=== PATIENT | female | born 1980 ===

== ENCOUNTER 2025-06-27 14:41 | Emergency (ER) | payer OTHER ==
[~2025-06-27] VITALS: Ht 157.5 cm; Wt 54.4 kg
[2025-06-27 15:03] VITALS: BP 149/94
[2025-06-27] MEDS ORDERED: Silver Sulfadiazine 1% Cream 25 APPLIC/25 GM Tube TOP ONE (16:00)
[2025-06-27] MEDS ORDERED: HYDROCODONE-AC1 EA10 PO (16:15)
[2025-06-27] MEDS ORDERED: SILVADENE20 G1 TOP (16:15)
== END 2025-06-27 16:42 | disposition home or self-care (01) ==
LOC: ER 14:41
DX: T24.202A Burn of second degree of unspecified site of left lower limb, except ankle and foot, initial encounter (principal); T24.201A Burn of second degree of unspecified site of right lower limb, except ankle and foot, initial encounter; T23.231A Burn of second degree of multiple right fingers (nail), not including thumb, initial encounter; T22.211A Burn of second degree of right forearm, initial encounter; T22.212A Burn of second degree of left forearm, initial encounter; T20.20XA Burn of second degree of head, face, and neck, unspecified site, initial encounter; X08.8XXA Exposure to other specified smoke, fire and flames, initial encounter
CPT/HCPCS: 16030; 99283-25